=== PATIENT | female | born 1990 | race Hispanic/Latino ===

== ENCOUNTER 2018-01-03 09:57 | Emergency (ER) | payer OTHER ==
[2018-01-03 10:58] LABS: Bilirubin Negative (Negative); Blood, Urine Negative (Negative); Glucose, Urine (Dipstick) Negative (Negative); Leukocyte Negative (Negative); Nitrite Negative (Negative); Protein, Urine (Dipstick) Negative (Neg-Trace); Specific Gravity, Urine 1.025 (1.005-1.030); pH, Urine 6.5 (5.0-9.0)
[2018-01-03 11:00] LABS: Clarity CLEAR (Clear)
== END 2018-01-03 11:23 | disposition home or self-care (01) ==
LOC: ERS 09:57
DX: O99.89 Other specified diseases and conditions complicating pregnancy, childbirth and the puerperium (principal); M54.5 Low back pain; Z3A.36 36 weeks gestation of pregnancy
CPT/HCPCS: 81003; 99283

== ENCOUNTER 2018-01-27 15:22 | Inpatient (IN) | payer MEDICAID, OTHER, SELFPAY ==
[~2018-01-27 15:22] MED LIST: Dexamethasone 20 MG/5 ML VIAL ONE; Ketorolac Tromethamine 30 MG/ML VIAL ONE; PHENYLEPHRINE-NS 100 MCG/ML 10 ML SYRINGE ONE; diphenhydrAMINE 50 MG/ML VIAL ONE
[2018-01-27 16:17] VITALS: BMI 30.4
[2018-01-27] MEDS ORDERED: Ondansetron HCl/PF 4 MG/2 ML Vial IVP PRN ×3 (18:14→19:21)
[2018-01-27] MEDS ORDERED: Lactated Ringer's 1,000 ML IV SCH (18:15)
[2018-01-27] MEDS ORDERED: CEFAZOLIN/Water 2 GM/20 ML SYRINGE SLOW IVP SCH (18:15)
[2018-01-27] MEDS ORDERED: Morphine 10 MG/ML VIAL SLOW IVP SCH (18:30)
[2018-01-27 18:41] LABS: Hemoglobin 12.9 g/dL (12.0-16.0); Mean Corpuscular HGB CONC 35.1 g/dL (32.0-36.0); Mean Corpuscular Hemoglobin 30.6 pg (27.0-31.0); Mean Corpuscular Volume 87.1 fL (78.0-98.0); Mean Platelet Volume 9.1 fL (7.4-10.4); Platelet Count 196 thou/uL (130-400); RBC Distribution Width 13.3 % (11.5-14.5); Red Blood Cell (RBC) Count 4.21 mill/uL (4.20-5.40); White Blood Cell (WBC) Count 7.5 thou/uL (4.8-10.8)
[2018-01-27] MEDS: Bicitra 30 ML UDCUP PO SCH (19:13)
[2018-01-27] MEDS ORDERED: Fentanyl 100 MCG/2 ML VIAL ONE (19:14)
[2018-01-27] MEDS ORDERED: Morphine PF 1 MG/ML SYR ONE (19:14)
[2018-01-27] MEDS ORDERED: Ketorolac Tromethamine 30 MG/ML VIAL ONE (19:15)
[2018-01-27] MEDS ORDERED: PHENYLEPHRINE-NS 100 MCG/ML 10 ML SYRINGE ONE (19:15)
[2018-01-27] MEDS ORDERED: ePHEDrine/0.9% NaCl/PF SYRINGE 50 mg/10 ml ONE (19:15)
[2018-01-27] MEDS ORDERED: Lidocaine 2% 10 ML INJ ONE (19:15)
[2018-01-27] MEDS ORDERED: Oxytocin 10 UNITS/ML VIAL ONE (19:15)
[2018-01-27] MEDS ORDERED: Dexamethasone 4 mg/ml Vial ONE (19:15)
[2018-01-27] MEDS ORDERED: Bupivacaine 0.75% W/DEXTROSE 8.25% 2 ML AMP ONE (19:15)
[2018-01-27] MEDS ORDERED: diphenhydrAMINE 50 MG/ML VIAL IVP PRN (19:21)
[2018-01-27] MEDS ORDERED: Naloxone HCl 0.4 mg/ml Vial IV PRN (19:21)
[2018-01-27] MEDS ORDERED: Naloxone HCl 0.4 mg/ml Vial IVP PRN ×2 (19:21)
[2018-01-27] MEDS ORDERED: HYDROmorphone 2 MG/ML VIAL SLOW IVP PRN (19:21)
[2018-01-27] MEDS ORDERED: Promethazine HCl 25 MG SUPP PR PRN (19:21)
[2018-01-27] MEDS ORDERED: Meperidine HCl/PF 25 MG/ML VIAL SLOW IVP PRN (19:21)
[2018-01-27] MEDS ORDERED: Promethazine HCl 25 MG/ML VIAL IM PRN (19:21)
[2018-01-27] MEDS ORDERED: Eucerin (Mineral Oil/Petrolatum,White) 30 gm Jar TOP PRN (19:21)
[2018-01-27 19:22] LABS: Syphilis Antibody Nonreactive (Nonreactive); Syphilis Antibody Index 0.04 S/CO (<1.00 Non-Reactive)
[2018-01-27 19:23] LABS: HBSAg Index 0.13 S/CO (0-0.99); Hep B Surf Ag Non-Reactive S/CO (NonReactive)
[2018-01-27] MEDS ORDERED: Ketorolac Tromethamine 30 MG/ML VIAL IVP SCH (19:30)
[2018-01-27] MEDS ORDERED: Communication Order-Pharmacy FS SCH (19:30)
[2018-01-27] MEDS ORDERED: diphenhydrAMINE 50 MG/ML VIAL ONE (20:46)
[2018-01-27 20:57] LABS: Actual Bicarbonate (HCO3a) 22.6 mEq/L (22-28); Base Excess (BEa) -6.2 mEq/L (-2.0 to +3.0)
[2018-01-27] MEDS ORDERED: Meperidine HCl/PF 25 MG/ML VIAL ONE (23:23)
[2018-01-28] MEDS ORDERED: HYDROcodone/Acetaminophen 5/325 mg Tablet PO PRN (00:23)
[2018-01-28] MEDS ORDERED: Lanolin Ointment 7 GM TUBE TOP PRN (00:23)
[2018-01-28] MEDS ORDERED: Bisacodyl 10 MG SUPP PR PRN (00:23)
[2018-01-28] MEDS ORDERED: Adacel (T-DAP) 0.5 ML VIAL IM ONE (00:23)
[2018-01-28] MEDS: Lactated Ringer's 1,000 ML IV SCH ×3 (01:15→17:46)
[2018-01-28] MEDS: Ketorolac Tromethamine 30 MG/ML VIAL IVP PRN ×2 (02:16→08:29)
[2018-01-28 05:18] LABS: Hemoglobin 11.7 g/dL (12.0-16.0); Mean Corpuscular HGB CONC 34.1 g/dL (32.0-36.0); Mean Corpuscular Hemoglobin 30.2 pg (27.0-31.0); Mean Corpuscular Volume 88.8 fL (78.0-98.0); Mean Platelet Volume 9.4 fL (7.4-10.4); Platelet Count 167 thou/uL (130-400); RBC Distribution Width 13.1 % (11.5-14.5); Red Blood Cell (RBC) Count 3.87 mill/uL (4.20-5.40); White Blood Cell (WBC) Count 13.2 thou/uL (4.8-10.8)
--- NOTE | 2018-01-28 07:08 | OP-2 ---
DATE OF PROCEDURE: 01/27/2018 RESIDENT SURGEON: Andi Nieves M.D. ATTENDING SURGEON: Jad Reyes M.D. PROCEDURE: Repeat low-transverse section with vacuum assistance for delivery. PREOPERATIVE DIAGNOSES: 1. Term intrauterine in labor. 2. Previous section x1. POSTOPERATIVE DIAGNOSES: 1. Term intrauterine in labor. 2. Marked anterior abdominal wall adhesions incorporating the bladder dome and omentum. ANESTHESIA: Spinal. INDICATIONS: Ms. Retana is a 27-year-old, G2, P1-0-0-1 at 39.4 weeks gestation, who presented to the Labor and Delivery in labor. She was scheduled for repeat on 01/30/2018. She presented in labor. She elected to proceed with a today. PROCEDURE IN DETAIL: After risks, benefits, and alternatives were explained, the patient provided informed consent. Preoperative antibiotics of 2 grams Ancef were given. The patient was taken to the operating room and spinal anesthesia was initiated. She was placed in the supine position, and prepped and draped in the usual sterile fashion. A Pfannenstiel incision was made with scalpel. The scar from her previous was excised. Incision was carried down to level of fascia, which was nicked sharply. The fascia was extended in the superiolateral fashion with Powers scissors. The superior and inferior edges of the fascia were elevated with Kriss clamps and the fascia was dissected away bluntly and sharply from the rectus muscle. A significant amount of scar tissue was noted at the level of the fascia. The abdominal cavity was entered bluntly. It was noted that the omentum and bladder were mildly adhesed to the anterior abdominal wall. The omentum and bladder were released without injury to either structure. An Mati O retractor was placed. It was noted that the opening was felt to be too small to deliver the baby. The Mati O retractor was then removed. The skin incision was extended. Additionally, a band of connected tissue that had part of the rectus muscle incorporated and it was noted along the right side. It was inspected and found to be free of omentum, bowel or bladder, and it was cut using bandage scissors to allow for additional room. The Mati O retractor was then replaced, and a bladder flap was created. Uterine score was made with a clean scalpel and carried down in the midline. The uterus was entered bluntly with the Yankauer suction tip. The hysterotomy was extended in the caudocranial fashion. The 's head was disengaged from the pelvis and elevated. However, due to the significant band of adhesions around the abdominal opening, the head could not be delivered at this time. The Mati O retractor was removed to create additional space. A second unsuccessful attempt was made using elevation of the head with a surgeon's hand and fundal pressure. At this time, a mushroom cup vacuum device was placed on the flexion point of the infant's head. The vacuum was brought up to 20 cmHg, and attempt was made to deliver the infant. One popoff occurred. The vacuum was replaced and the was successfully delivered on the second attempt. Total vacuum time was less than 10 seconds. The remainder of the body was then delivered with fundal pressure. No nuchal cord was noted. The infant had bulb suction performed while in the table. However, the infant was noted to be cyanotic, and the cord was cut and clamped and handed to the awaiting resuscitative team. Since the vacuum assistance was required, a cord segment was taken for cord gas analysis. Cord pH at the time of delivery was 7.20 with a pCO2 of 58.8 and a base excess of negative 6.2. Additionally, cord blood was collected for type and screen. The placenta was then manually extracted. Uterus was externalized and the anterior was curetted with a dry lap. Edges of the hysterotomy were found with ring forceps, and the hysterotomy was closed using a #1 Monocryl suture in the running locking fashion. One [id number] suture was required along the right apex using the 1-0 Monocryl. Several small bleeders were noted along the serosal edge and were stopped with the Bovie. The uterus was then internalized and hysterotomy was inspected. The abdomen was irrigated free of clots. The hysterotomy was inspected one final time and noted to be hemostatic. There was a small bleeding noted on the cut edge of the omentum, which was stopped with the Bovie. The rectus muscle and fascia were inspected, and all bleeding vessels were stopped with Bovie. Fascia was closed using a 1-0 Vicryl suture in the running nonlocking fashion. Subcutaneous fat was closed using a running nonlocking plain gut suture. Skin was reapproximated using alejandro. A silver impregnated pressure dressing was applied over the top of the alejandro. Counts were correct x3. Patient tolerated the procedure well and was transferred to the recovery unit for routine care. ESTIMATED BLOOD LOSS: 750 mL. COMPLICATIONS: None. SPECIMENS: Cord blood sent to lab for analysis and cord gas analysis with the findings previously mentioned. FINDINGS: Grossly normal viable female infant with Apgars of 8 and 9 at 1 and 5 minutes respectively. Grossly normal placenta with three-vessel cord, which was discarded, and the adhesions of the anterior abdominal wall that incorporated omentum and bladder as previously noted. Cut time was 1952. Delivery time was 2016. DRAINS: Rogel catheter draining clear urine. The patient had approximately 100 mL of urine output during the procedure. Dr. Reyes was present for the entire procedure. HANNY
[2018-01-28] MEDS: Ibuprofen 800 MG TAB PO SCH ×3 (07:49→22:11)
--- NOTE | 2018-01-28 07:58 | PDOC.PP ---
Post Progress Note Post Day #: 1 Subjective: This morning patient complains of itching all over which started just last night. She states she is having mild aching at the incision site but denies cramping. She states the itching made it hard to sleep last night but is otherwise feeling well. She does feel her legs but is still not feeling quite ready to walk. PO intake tolerated: yes Flatus: no Ambulation: no Vital Signs (12 hours) Temp Pulse Resp BP Pulse Ox 01/28/18 06:25 20 01/28/18 04:10 98.3 F 76 18 103/58 L 97 01/28/18 02:00 98.4 F 73 20 104/51 L 96 01/28/18 01:00 97.8 F 75 18 112/65 01/28/18 00:00 97.9 F 75 20 111/64 97 01/27/18 20:00 98.2 F 77 22 H Weight Weight 73.028 kg - Physical Examination General: NAD Cardiovascular: no m/r/g, RRR Respiratory: clear to auscultation bilaterally, non-labored breathing Abdominal: + bowel sounds, no distention, appropriately TTP Extremities: negative homans (B) Skin: CS incision dry & intact Neurological: no gross focal deficits Psychiatric: A&Ox3, normal affect Result Diagrams: 01/28/18 05:06 Additional Labs: Post Labs Blood Type O POSITIVE 01/27/18 18:26 Hep Bs Antigen Non-Reactive S/CO (NonReactive) 01/27/18 18:26 (1) normal course Code(s): Z39.2 - ENCOUNTER FOR ROUTINE FOLLOW-UP Status: Acute - Assessment/Plan 27 yo s/p repeat C/S at 2017 on 01/28. Indication: labor. # Post course - 12 hours post C/S - had some oozing at incision site last night, compression dressing applied, dry this AM - benadryl for itching - monitor H/H, 750ml EBL - encourage PO intake today - plans to formula feed - plans to use oral contraceptives <Rocky Sawyer - Last Filed: 01/28/18 08:04> Vital Signs (12 hours) Temp Pulse Resp BP 01/29/18 20:10 98.1 F 91 20 112/57 L Weight Weight 161 lb Result Diagrams: 01/28/18 05:06 Additional Labs: Post Labs Blood Type O POSITIVE 01/27/18 18:26 Hep Bs Antigen Non-Reactive S/CO (NonReactive) 01/27/18 18:26 <Jad Reyes - Last Filed: 01/30/18 06:52> Attending Addendum - Attending Addendum Date/Time: 01/30/1852 I personally evaluated the patient and discussed the management with Dr. Sawyer I agree with the History, Examination, Assessment and Plan documented above with any addition or exceptions noted below. <Jad Reyes - [place] Filed: 01/30/18 06:52>
[2018-01-28] MEDS: Docusate Calcium (SURFAK) 240 MG CAP PO SCH ×2 (08:29→22:11)
[2018-01-28] MEDS: Prenatal Vitamin 1 TAB PO SCH (08:29)
[2018-01-28] MEDS: HYDROcodone/Acetaminophen 5/325 mg Tablet PO PRN ×2 (09:56→15:03)
[2018-01-28] MEDS: Bicitra 30 ML UDCUP PO SCH (17:58)
--- NOTE | 2018-01-29 04:26 | PDOC.PP ---
Post Progress Note Post Day #: 2 tonight Subjective: sates stomach area is "sore" but tolerating po, no N/V. No heavy VB. PO intake tolerated: yes Flatus: yes Ambulation: yes Vital Signs (12 hours) Temp Pulse Resp BP BP Pulse Ox 01/29/18 00:00 98.4 F 76 20 94/51 L 01/28/18 20:00 97.4 F L 74 18 98/53 L 97 Weight Weight 161 lb - Physical Examination General: NAD Cardiovascular: no m/r/g Abdominal: + bowel sounds, lochia, no distention, appropriately TTP Extremities: negative homans (B) Skin: CS incision dry & intact (alejandro in place) Neurological: no gross focal deficits Psychiatric: A&Ox3, normal affect Result Diagrams: 01/28/18 05:06 Additional Labs: Post Labs Blood Type O POSITIVE 01/27/18 18:26 Hep Bs Antigen Non-Reactive S/CO (NonReactive) 01/27/18 18:26 (1) delivery delivered Code(s): O82 - ENCOUNTER FOR DELIVERY WITHOUT INDICATION Status: Acute (2) normal course Code(s): Z39.2 - ENCOUNTER FOR ROUTINE FOLLOW-UP Status: Acute - Assessment/Plan Repeat CS doing well. Pod 2 this PM. I discussed with her watching her overnight tonight with possible dsch home tomorrow Friday on POD 3. She is OK with plan. Alejandro would be removed at [facility] on Friday next week. No evidence of ileus or other issue at this time. HCT was normal last check.
[2018-01-29] MEDS: HYDROcodone/Acetaminophen 5/325 mg Tablet PO PRN ×2 (04:30→14:50)
[2018-01-29] MEDS: Lactated Ringer's 1,000 ML IV SCH ×3 (04:38→11:05)
[2018-01-29] MEDS: Ibuprofen 800 MG TAB PO SCH ×3 (05:59→21:53)
[2018-01-29] MEDS: Prenatal Vitamin 1 TAB PO SCH (07:49)
[2018-01-29] MEDS: Docusate Calcium (SURFAK) 240 MG CAP PO SCH ×2 (07:49→21:53)
[2018-01-30 01:01] VITALS: TEMP 98.1
[2018-01-30] MEDS: Lactated Ringer's 1,000 ML IV SCH ×2 (03:23→07:54)
[2018-01-30] MEDS: HYDROcodone/Acetaminophen 5/325 mg Tablet PO PRN ×2 (03:25→08:16)
[2018-01-30] MEDS: Ibuprofen 800 MG TAB PO SCH (06:23)
--- NOTE | 2018-01-30 07:22 | PDOC.PP ---
Post Progress Note Post Day #: 3 Subjective: Mother is feeling well overall today. She states she is ambulating without difficulty. No N/V, and tolerating PO intake well. She noticed some blood when wiping after urinating but says it has been decreasing. She complains of a mild upper quadrant abdominal soreness. She has passed gas but has not had a bowel movement as of yet. PO intake tolerated: yes Flatus: yes Ambulation: yes Vital Signs (12 hours) Temp Pulse Resp BP 01/29/18 20:10 98.1 F 91 20 112/57 L Weight Weight 73.028 kg - Physical Examination General: NAD Cardiovascular: no m/r/g, RRR Respiratory: clear to auscultation bilaterally, non-labored breathing Abdominal: + bowel sounds, no distention Extremities: negative homans (B) Skin: CS incision dry & intact Neurological: no gross focal deficits Psychiatric: A&Ox3, normal affect Result Diagrams: 01/28/18 05:06 Additional Labs: Post Labs Blood Type O POSITIVE 01/27/18 18:26 Hep Bs Antigen Non-Reactive S/CO (NonReactive) 01/27/18 18:26 (1) normal course Code(s): Z39.2 - ENCOUNTER FOR ROUTINE FOLLOW-UP Status: Acute - Assessment/Plan # Post C/S - POD 3 - ambulating well, tolerating PO, passing gas - mild abdominal soreness, possibly related to constipation - plan for d/c home today - f/u at [facility] on Friday for staple removal and f/u <Rocky Sawyer - Last Filed: 01/30/18 07:21> Vital Signs (12 hours) Temp Pulse Resp BP 01/29/18 20:10 98.1 F 91 20 112/57 L Weight Weight 161 lb Result Diagrams: 01/28/18 05:06 Additional Labs: Post Labs Blood Type O POSITIVE 01/27/18 18:26 Hep Bs Antigen Non-Reactive S/CO (NonReactive) 01/27/18 18:26 <Jad Reyes - Last Filed: 01/30/18 07:53> Attending Addendum - Attending Addendum Date/Time: 01/30/18 [id number] I personally evaluated the patient and discussed the management with Dr. Sawyer I agree with the History, Examination, Assessment and Plan documented above with any addition or exceptions noted below. <Jad Reyes - Last Filed: 01/30/18 07:53>
[2018-01-30 08:05] VITALS: BP 103/63
[2018-01-30] MEDS: Docusate Calcium (SURFAK) 240 MG CAP PO SCH (08:16)
[2018-01-30] MEDS: Prenatal Vitamin 1 TAB PO SCH (08:16)
== END 2018-01-30 12:25 | disposition home or self-care (01) | DRG 766 ==
LOC: L&D/OP 15:22 → L&D 18:33 → 3SW 01-28 00:17
PROVIDERS: ADMIT Obstetrics & Gynecology; ATTEND Obstetrics & Gynecology
PROC: 10D00Z1 Extraction of Products of Conception, Low, Open Approach (ICD-10-PCS; principal; 2018-01-27)
PROC: 10D07Z6 Extraction of Products of Conception, Vacuum, Via Natural or Artificial Opening (ICD-10-PCS; 2018-01-27)
DX: O34.211 Maternal care for low transverse scar from previous cesarean delivery (principal); O99.62 Diseases of the digestive system complicating childbirth; K66.0 Peritoneal adhesions (postprocedural) (postinfection); Z3A.39 39 weeks gestation of pregnancy; Z37.0 Single live birth; K59.00 Constipation, unspecified; L29.9 Pruritus, unspecified
CPT/HCPCS: 36415; 51702; 82805; 85027; 86780; 86850; 86900; 86901; 87340; 99285; J1100; J1200; J1885; J2175; J2270; J2274; J2590; J3010; J3490

== ENCOUNTER 2018-02-04 20:35 | Emergency (ER) | payer MEDICAID, SELFPAY ==
[~2018-02-04 20:35] MED LIST changes: -Dexamethasone 20 MG/5 ML VIAL ONE; +ISOVUE-370 76%-LOCM 1 ML ONE; -Ketorolac Tromethamine 30 MG/ML VIAL ONE; -PHENYLEPHRINE-NS 100 MCG/ML 10 ML SYRINGE ONE; -diphenhydrAMINE 50 MG/ML VIAL ONE
[2018-02-04 21:24] LABS: Bilirubin Negative (Negative); Blood, Urine Large (Negative); Clarity CLEAR (Clear); Glucose, Urine (Dipstick) Negative (Negative); Leukocyte Trace (Negative); Nitrite Negative (Negative); Protein, Urine (Dipstick) Negative (Neg-Trace); Specific Gravity, Urine 1.011 (1.002-1.036)
[2018-02-04 21:27] LABS: Bacteria/HPF None Seen HPF (None Seen); Hyaline Casts/LPF 0-3 HYALINE CAST LPF (0-3 Hyaline); Pathc Cast-AUWi Flag 0.29 (0-2.49); Squamous Epithelial 0-3 HPF (0-3); WBC/HPF 0-3 HPF (0-3)
[2018-02-04 21:38] LABS: #Basophils 0.1 thou/uL (0.0-0.2); #Eosinphils 0.1 thou/uL (0.0-0.7); #Lymphocytes 2.4 thou/uL (1.20-3.40); #Monocytes 0.4 thou/uL (0.11-0.59); #Neutrophils 3.1 thou/uL (1.40-6.50); %Basophils 1.5 % (0.0-1.0); %Eosinophils 2.4 % (0.0-10.0); %Lymphocytes 38.9 % (21.0-51.0); %Monocytes 6.4 % (0.0-10.0); %Neutrophils 50.8 % (42.0-75.0); Hemoglobin 13.4 g/dL (12.0-16.0); Mean Corpuscular HGB CONC 33.7 g/dL (32.0-36.0); Mean Corpuscular Hemoglobin 29.8 pg (27.0-31.0); Mean Corpuscular Volume 88.4 fL (78.0-98.0); Mean Platelet Volume 7.3 fL (7.4-10.4); Platelet Count 424 thou/uL (130-400); RBC Distribution Width 12.8 % (11.5-14.5); White Blood Cell (WBC) Count 6.1 thou/uL (4.8-10.8)
[2018-02-04] MEDS ORDERED: Ondansetron ODT 4 MG TAB ONE (21:45)
[2018-02-04 21:58] LABS: ALT (SGPT) 17 U/L (8-55); AST (SGOT) 11 U/L (5-34); Alkaline Phosphatase 116 U/L (40-150); Anion Gap 12 mmol/L (10-20); BUN (Urea Nitrogen) 19 mg/dL (7.0-18.7); Bilirubin, Total 0.2 mg/dL (0.2-1.2); Calc. Creatinine Clearance 0 mL/min (70-130); Calcium 9.5 mg/dL (7.8-10.44); Carbon Dioxide 24 mmol/L (22-29); Chloride 107 mmol/L (98-107); Estimated GFR-MDRD Greater than 90; Globulin 3.5 g/dL (2.4-3.5); Glucose 82 mg/dL (70-105); Potassium 3.8 mmol/L (3.5-5.1); Protein, Total 7.5 g/dL (6.0-8.3); Sodium 139 mmol/L (136-145)
--- NOTE | 2018-02-04 23:38 | CT ---
CT ABDOMEN WITH CONTRAST CT PELVIS WITH CONTRAST: DATE: 02/04/18 TIME: 11:12 p.m. HISTORY: 27-year-old female status post section one week ago, now bleeding from incision si te. COMPARISON: None. TECHNIQUE: IV injection of iodinated contrast media: Isovue. Oral contrast media: Not administered. FINDINGS: Urinary bladder is distended. Uterus is very large, consistent with recent status. The [place] r[place] fundus is centered in the left side of the mid abdominal cavity. The uterus has diffusely hetero geneously low attenuation in the anterior myometrium. There is fat stranding within the abdominal cav ity anterior to the enlarged uterus and anterior to the distended urinary bladder. Urinary bladder brooke s thin, normal anne. There is irregular soft tissue attenuation representing recent postsurgical inc ision in the subcutaneous fat anterior to the inferior aspect of the rectus abdominis muscle at midli ne and bilaterally representing the surgical wound. At midline in the inferior aspect of th e anterior abdominal wall, there is a small, approximately 1.5 x 2.5 x 1 cm focal collection of fluid with irregular margins. Given the history of bleeding from the site, this is probably a small hemato ma. The posterior aspect of this fluid collection abuts the anterior surface of the urinary bladder. The liver has diffuse, heterogeneous, mottled, parenchymal enhancement pattern (nutmeg liver). There is no thrombosis of the main portal vein. There is not enough IV contrast in left and right portal ve ins or their branches to evaluate for thrombosis. The same is also true for the inferior vena cava an d hepatic veins. The abdominal aorta, bilateral kidneys, adrenals, pancreas, and spleen, are normal. Gallbladder is distended. No pleural effusion or consolidation at the lung bases. No pneumoperitoneum . No small bowel dilation. No acute appendicitis or acute colonic diverticulitis. No small bowel dila tion. IMPRESSION: 1. Recently uterus. 2. Signs of recent section. 3. Small fluid collection at midline in the far inferior anterior abdominal wall at the site of the section, which probably represents a small amount of hemorrhage. 4. 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 5. Distended gallbladder. LANDON Mackey POS: JINNY
== END 2018-02-05 00:30 | disposition home or self-care (01) ==
LOC: ERS 20:35
DX: O86.0 Infection of obstetric surgical wound (principal)
CPT/HCPCS: 36415; 74177; 80053; 81003; 81015; 83605; 85025; 87086; 96361; 96374; J2270; Q0162